=== PATIENT | female | born 1970 | race African-American/Black ===

== ENCOUNTER 2018-09-10 05:38 | Inpatient (IN) ==
[2018-09-06 11:35] LABS: Basophils % 0.1 % (0.0-0.8); Eosinophils % 0.4 % (0.00-10.9); Hematocrit 41.5 VOL% (35.7-47.0); Hemoglobin 13.9 GM/DL (12.0-16.0); Immature Granulocytes % 0.5 %; Immature Granulocytes Absolute 0.04 #; Lymphocytes # 1.2 10*3/uL (1.4-4.0); Lymphocytes % 14.1 % (21.3-54.2); Mean Corpuscular HGB Conc 33.5 GM/DL (32-36); Mean Corpuscular Hemoglobin 31 PG (27-34); Mean Corpuscular Volume 91.8 FL (87-102); Mean Platelet Volume 10.6 FL (9.6-12.0); Monocytes # 0.3 10*3/uL (0.11-0.8); Monocytes % 3.2 % (1.7-12.7); Neutrophils # 6.9 10*3/uL (1.4-7.4); Neutrophils % 81.7 % (38.7-73.9); Platelet Count 311 T/CUMM (130-400); Red Blood Count 4.52 MC/CUMM (3.8-5.5); White Blood Count 8.5 T/CUMM (4-12)
[2018-09-06 11:44] LABS: Apearance,Urine CLEAR (Clear); Bilirubin,Urine Negative (Negative); Blood, Urine Small mg/dL (Negative); Glucose,Urine (UA) Negative (Negative); Ketones,Urine Negative (Negative); Mucus,Urine Occasional /LPF (Occasional); Nitrite,Urine Negative (Negative); Protein,Urine Negative; RBC,Urine <1 /HPF (0-4); Squamous Epithelial Cell,Urine Occasional /HPF (0-10); Urine Color Straw (Yellow); Urine Urobilinogen < 2.0 EU/DL (0.2-1.0); WBC,Urine <1 /HPF (0-6)
[2018-09-06 11:48] LABS: INR 0.9; PT Patient Result 9.8 SECS; Partial Thromboplastin Time 22.2 SECS (0-40)
[2018-09-06 12:28] LABS: Alanine Aminotransferase 25 U/L (13-56); Albumin 3.9 G/DL (3.4-5.0); Alkaline Phosphatase 58 U/L (45-117); Aspartate Amino Transferase 9 U/L (0-37); Bilirubin,Total < 0.39 MG/DL (0.2-1.0); Blood Urea Nitrogen 16 MG/DL (7-18); Calcium 9.7 MG/DL (8.5-10.1); Glucose 126 MG/DL (74-106); Osmolality,Calculated 272.1 MOS/KG (273-304); Sodium 135 MMOL/L (136-145); Total Protein 7.4 G/DL (6.4-8.3)
[2018-09-10] MEDS ORDERED: VANCOMYCIN INJ 1,000 MG in SODIUM CHLORIDE 0.9% 250 ML IV ONE (06:00)
[2018-09-10] MEDS: LACTATED RINGERS 1,000 ML IV SCH ×3 (07:01→20:34)
[2018-09-10] MEDS ORDERED: ROPIVACAINE 0.5% 30 ML VIAL ONE (07:01)
[2018-09-10] MEDS ORDERED: BUPIVACAINE SPINAL 0.75% 2 ML AMP SPINAL ONE (07:09)
[2018-09-10] MEDS ORDERED: BACITRACIN OINT 0.9 GM PACK TOP ONE (07:27)
[2018-09-10] MEDS ORDERED: oxyCODONE IR 5 MG TABLET PO PRN ×2 (07:50)
[2018-09-10] MEDS ORDERED: diphenhydrAMINE CAP 25 MG CAPSULE PO PRN (07:50)
[2018-09-10] MEDS ORDERED: ONDANSETRON 4 MG/2 ML VIAL IV PRN (07:50)
[2018-09-10] MEDS ORDERED: HYDROmorphone 2 MG/1 ML VIAL IV PRN ×2 (07:50)
[2018-09-10] MEDS ORDERED: ZALEPLON 5 MG CAPSULE PO PRN (07:50)
[2018-09-10] MEDS ORDERED: VANCOMYCIN 1,000 MG VIAL ONE (08:19)
[2018-09-10] MEDS ORDERED: ceFAZolin 1,000 MG VIAL ONE (08:20)
[2018-09-10 09:18] LABS: Apearance,Urine CLEAR (Clear); Bacteria,Urine Occasional /HPF (Few); Bilirubin,Urine Negative (Negative); Blood, Urine Negative (Negative); Glucose,Urine (UA) Negative (Negative); Ketones,Urine Negative (Negative); Mucus,Urine Occasional /LPF (Occasional); Nitrite,Urine Negative (Negative); Protein,Urine Negative; RBC,Urine 5 /HPF (0-4); Urine Color Yellow (Yellow); Urine Specific Gravity 1.016 (1.001-1.035); Urine Urobilinogen < 2.0 EU/DL (0.2-1.0); WBC,Urine 1 /HPF (0-6)
[2018-09-10] MEDS ORDERED: fentaNYL 100 MCG/2 ML VIAL ONE (09:30)
[2018-09-10] MEDS ORDERED: LIDOCAINE 1% 5 ML VIAL ONE (09:30)
[2018-09-10] MEDS ORDERED: TRANEXAMIC ACID 1,000 MG/10 ML VIAL ONE (09:30)
[2018-09-10] MEDS ORDERED: ONDANSETRON 4 MG/2 ML VIAL ONE (09:30)
[2018-09-10] MEDS ORDERED: PROPOFOL 200 MG/20 ML VIAL IV ONE (09:30)
[2018-09-10] MEDS ORDERED: MIDAZOLAM 2 MG/2 ML VIAL ONE (09:30)
[2018-09-10] MEDS ORDERED: PROPOFOL 500 MG/50 ML BOTTLE IV ONE (09:30)
[2018-09-10] MEDS ORDERED: PHENYLEPHRINE 1 MG/10 ML SYRINGE IV ONE (09:31)
[2018-09-10] MEDS ORDERED: SODIUM CHLORIDE 0.9% 100 ML IV ONE (09:31)
[2018-09-10] MEDS: KETOROLAC 30 MG/1 ML VIAL IV SCH ×3 (09:40→21:26)
[2018-09-10] MEDS: hydroCHLOROthiazide 25 MG TABLET PO SCH (10:19)
[2018-09-10] MEDS: POTASSIUM CHLORIDE 20 MEQ TABLET PO SCH (10:19)
[2018-09-10] MEDS: DOCUSATE SODIUM 100 MG CAPSULE PO SCH ×2 (10:19→20:33)
[2018-09-10] MEDS: GABAPENTIN 100 MG CAPSULE PO SCH ×3 (10:20→20:33)
[2018-09-10] MEDS: ACETAMINOPHEN 500 MG TABLET PO SCH ×2 (14:24→20:32)
[2018-09-10] MEDS ORDERED: LACTATED RINGERS 1,000 ML IV ONE (16:23)
[2018-09-10] MEDS: ceFAZolin 1,000 MG in SYRINGE 1 EACH IV SCH (17:23)
[2018-09-11] MEDS: ceFAZolin 1,000 MG in SYRINGE 1 EACH IV SCH (00:32)
[2018-09-11] MEDS: FONDAPARINUX 2.5 MG/0.5 ML SYRINGE SUBCUT SCH (02:40)
[2018-09-11] MEDS: ACETAMINOPHEN 500 MG TABLET PO SCH ×2 (02:41→08:29)
[2018-09-11] MEDS: KETOROLAC 30 MG/1 ML VIAL IV SCH (04:45)
[2018-09-11] MEDS: LACTATED RINGERS 1,000 ML IV SCH ×2 (04:46→06:04)
[2018-09-11 04:57] LABS: Basophils % 0.3 % (0.0-0.8); Eosinophils # 0.2 10*3/uL (0.0-0.87); Eosinophils % 1.4 % (0.00-10.9); Hematocrit 30.1 VOL% (35.7-47.0); Hemoglobin 9.8 GM/DL (12.0-16.0); Immature Granulocytes % 0.5 %; Immature Granulocytes Absolute 0.05 #; Lymphocytes # 2.1 10*3/uL (1.4-4.0); Lymphocytes % 19.8 % (21.3-54.2); Mean Corpuscular HGB Conc 32.6 GM/DL (32-36); Mean Corpuscular Hemoglobin 30 PG (27-34); Mean Corpuscular Volume 92.9 FL (87-102); Mean Platelet Volume 11.1 FL (9.6-12.0); Monocytes # 1.1 10*3/uL (0.11-0.8); Monocytes % 9.9 % (1.7-12.7); Neutrophils # 7.4 10*3/uL (1.4-7.4); Neutrophils % 68.1 % (38.7-73.9); Platelet Count 193 T/CUMM (130-400); Red Blood Count 3.24 MC/CUMM (3.8-5.5); Red Cell Distribution Width 13.9 % (9.3-17.3); White Blood Count 10.8 T/CUMM (4-12)
[2018-09-11 05:21] LABS: Osmolality,Calculated 278.5 MOS/KG (273-304); Potassium 3.1 MMOL/L (3.5-5.1)
[2018-09-11] MEDS ORDERED: ceFAZolin 1,000 MG in SYRINGE 1 EACH IV ONE (06:00)
[2018-09-11] MEDS: hydroCHLOROthiazide 25 MG TABLET PO SCH (08:29)
[2018-09-11] MEDS: POTASSIUM CHLORIDE 20 MEQ TABLET PO SCH ×3 (08:30→20:08)
[2018-09-11] MEDS: DOCUSATE SODIUM 100 MG CAPSULE PO SCH ×2 (08:30→20:08)
[2018-09-11] MEDS: GABAPENTIN 100 MG CAPSULE PO SCH ×3 (08:30→20:08)
[2018-09-11] MEDS: CELECOXIB 200 MG CAPSULE PO SCH (14:51)
[2018-09-12] MEDS: FONDAPARINUX 2.5 MG/0.5 ML SYRINGE SUBCUT SCH (01:01)
[2018-09-12 05:52] LABS: Basophils % 0.2 % (0.0-0.8); Eosinophils # 0.2 10*3/uL (0.0-0.87); Eosinophils % 2.2 % (0.00-10.9); Hematocrit 30.7 VOL% (35.7-47.0); Immature Granulocytes % 0.5 %; Immature Granulocytes Absolute 0.06 #; Lymphocytes # 1.9 10*3/uL (1.4-4.0); Lymphocytes % 17.7 % (21.3-54.2); Mean Corpuscular HGB Conc 32.6 GM/DL (32-36); Mean Corpuscular Hemoglobin 30 PG (27-34); Mean Corpuscular Volume 93.3 FL (87-102); Mean Platelet Volume 11.3 FL (9.6-12.0); Monocytes % 9.2 % (1.7-12.7); Neutrophils # 7.7 10*3/uL (1.4-7.4); Neutrophils % 70.2 % (38.7-73.9); Platelet Count 193 T/CUMM (130-400); Red Blood Count 3.29 MC/CUMM (3.8-5.5); Red Cell Distribution Width 13.8 % (9.3-17.3); White Blood Count 10.9 T/CUMM (4-12)
[2018-09-12 06:22] LABS: Calcium 8.7 MG/DL (8.5-10.1); Osmolality,Calculated 272.8 MOS/KG (273-304); Potassium 3.1 MMOL/L (3.5-5.1)
[2018-09-12] MEDS: DOCUSATE SODIUM 100 MG CAPSULE PO SCH ×2 (08:11→20:53)
[2018-09-12] MEDS: POTASSIUM CHLORIDE 20 MEQ TABLET PO SCH ×3 (08:12→20:53)
[2018-09-12] MEDS: CELECOXIB 200 MG CAPSULE PO SCH (08:12)
[2018-09-12] MEDS: GABAPENTIN 100 MG CAPSULE PO SCH ×3 (08:13→20:53)
[2018-09-12] MEDS: hydroCHLOROthiazide 25 MG TABLET PO SCH (09:26)
[2018-09-12] MEDS: MAGNESIUM HYDROXIDE SUSP 30 ML UDCUP PO PRN (16:36)
[2018-09-13] MEDS: FONDAPARINUX 2.5 MG/0.5 ML SYRINGE SUBCUT SCH (02:39)
[2018-09-13 06:21] LABS: Basophils % 0.3 % (0.0-0.8); Eosinophils # 0.3 10*3/uL (0.0-0.87); Eosinophils % 2.8 % (0.00-10.9); Hematocrit 29.2 VOL% (35.7-47.0); Hemoglobin 9.5 GM/DL (12.0-16.0); Immature Granulocytes % 0.7 %; Immature Granulocytes Absolute 0.06 #; Lymphocytes # 2.2 10*3/uL (1.4-4.0); Lymphocytes % 24.9 % (21.3-54.2); Mean Corpuscular HGB Conc 32.5 GM/DL (32-36); Mean Corpuscular Hemoglobin 30 PG (27-34); Mean Corpuscular Volume 93.6 FL (87-102); Monocytes # 0.7 10*3/uL (0.11-0.8); Monocytes % 8.3 % (1.7-12.7); Neutrophils # 5.7 10*3/uL (1.4-7.4); Platelet Count 201 T/CUMM (130-400); Red Blood Count 3.12 MC/CUMM (3.8-5.5); Red Cell Distribution Width 13.5 % (9.3-17.3)
[2018-09-13 06:35] LABS: Calcium 8.7 MG/DL (8.5-10.1); Osmolality,Calculated 271.8 MOS/KG (273-304); Potassium 3.5 MMOL/L (3.5-5.1)
[2018-09-13] MEDS: DOCUSATE SODIUM 100 MG CAPSULE PO SCH (09:43)
[2018-09-13] MEDS: hydroCHLOROthiazide 25 MG TABLET PO SCH (09:43)
[2018-09-13] MEDS: CELECOXIB 200 MG CAPSULE PO SCH (09:43)
[2018-09-13] MEDS: POTASSIUM CHLORIDE 20 MEQ TABLET PO SCH (09:44)
[2018-09-13] MEDS: GABAPENTIN 100 MG CAPSULE PO SCH (09:44)
[2018-09-13] MEDS: MAGNESIUM HYDROXIDE SUSP 30 ML UDCUP PO PRN (09:45)
[2018-09-13 13:07] VITALS: BP 128/76
== END 2018-09-13 14:03 | disposition swing bed (61) | DRG 301 ==
LOC: N.SDSINP 05:38 → N.3E 09:43
PROVIDERS: ADMIT Orthopaedic Surgery; ATTEND Orthopaedic Surgery